=== PATIENT | male | born 1980 | race Two or more races ===

== ENCOUNTER → 2024-04-08 | Outpatient (CLI) | payer MEDICAID, SELFPAY ==
--- NOTE | 2024-04-08 10:30 | XR_ITS ---
Examination: MRI lumbar spine without contrast Date and time of exam: April 08, 2024 1121 hours INDICATIONS: Low back pain radiating down the right leg to the foot 4 months Technique: Multiple MRI axial and sagittal sections lumbar spine. Sagittal T2-weighted images, TR 3500, TE 118 T1 weighted transverse sections, TR 688 T8.5, T2-weighted sagittal sections T1 weighted sagittal sections TR 621, TE 30 T2 axial sections, TR 4, 190, TE 84. Findings: Adequate alignment lumbar vertebral bodies on the lateral view No lumbar fracture Disc desiccation lower 2 lumbar levels Moderate disc narrowing L5-S1 L5-S1 12 mm extruded right paracentral subarticular disc displacing the right S1 nerve root to a lesser extent the left S1 nerve root and producing mild right L5 ganglionic compression L4-L5 2 mm central lumbar disc bulge More cephalad levels unremarkable IMPRESSION: L5-S1 large, 12 mm, extruded right paracentral subarticular disc as above
== END | disposition home or self-care (01) ==
PROVIDERS: Referring Provider Family Medicine; Visit Provider Family Medicine
DX: M51.27 Other intervertebral disc displacement, lumbosacral region (principal)
CPT/HCPCS: 72148

== ENCOUNTER 2024-05-14 15:26 | Outpatient (RCR) | payer MEDICAID, SELFPAY ==
--- NOTE | 2024-05-14 15:53 | PTNOTE_ITS ---
PT OP Initial Eval Patient Information Outpatient Physical Therapy Treatment Date: 05/14/24 Visit Reasons: Right side of lower back pain Medical Diagnosis: M54.31 Treatment Dx #1: Back Pain Start of Care: 05/14/24 Date of Onset: 1 year ago Smoking Status Smoking Status: Never smoker Initial Assessment Subjective: Pt is a 44 y/o male reports of chronic back pain (12/12) with weakness and numbness in the right leg. Pt's MRI showed large 12 mm disc bulge at the L5-S1 disc. Pt has limitation with sitting, standing, chores, self care, cooking, cleaning, work duties, and performing ADLs. Objective: L/S AROM: all motions are 50% towards end range with pain Hip PROM: all motions are WFL except IR Hip MMTs: grossly 3/5 Special Test (+) slump (+) SLR Assessment: Pt demonstrate back pain with mobility deficits consistent with MRI finding of large disc bulge. Due to severity of disc protrustion Pt's prognosis with physical therapy is poor. Recommend patient to follow up with provider for further consultation and possible referral to neuro consult. Pt was evaluted and d/c from care; thank you for your referrals. Short Term and Shelter Goals 1) Eval and D/C 2) Follow up with provider Treatment Plan Eval and D/C Frequency and Duration: 1x Certification Dates: 05/14/24 to 08/12/24 Procedure Charges OP PT Eval Mod Complex 30 minutes: Yes
== END 2024-06-04 23:59 | disposition home or self-care (01) ==
LOC: CPTX 15:26
PROVIDERS: PCP Family Medicine; Referring Provider Family Medicine; Visit Provider Family Medicine
DX: M54.31 Sciatica, right side (principal); G89.29 Other chronic pain
CPT/HCPCS: 97162

== ENCOUNTER 2024-11-23 13:44 | Outpatient (RCR) | payer MEDICAID, SELFPAY ==
--- NOTE | 2024-11-23 17:31 | PTNOTE_ITS ---
PT OP Initial Eval Patient Information Outpatient Physical Therapy Treatment Date: 11/23/24 Visit Reasons: Right lower limb/including hip Medical Diagnosis: D21.21 Start of Care: 11/23/24 Date of Onset: 1 yr ago Smoking Status Smoking Status: Never smoker Initial Assessment Subjective: Pt is 44 yr old male who c/o R ankle and foot pain x1 yr. Increased pain with stepping and walking and he points to the ball of the foot as site of pain and tenderness. PMH lumbar surgery Imaging: none Pt goal: not sure Objective: R ankle AROM: Strength: DF full 4+/5 PF: full 4+/5 Squat: full without pain TTP: min to none of plantar aspect met heads and plantar fascia and soft tissue protrusion inferior to lateral malleolus Assessment: Pt presents with soft tissue protrusion that is moderately TTP. He will not likely benefit from skilled therapy and has poor rehab potential to meet goals due to not knowing what the protrusion is. He would benefit from further diagnostic imaging such as MRI of R ankle and foot. Short Term and Senior Living Goals Eval and D/C Treatment Plan Eval and D/C Certification Dates: 11/23/24 to 12/23/21 Procedure Charges OP PT Eval Mod Complex 30 minutes: Yes
== END 2024-12-02 23:59 | disposition home or self-care (01) ==
LOC: CPTX 13:44
PROVIDERS: PCP Podiatrist Foot & Ankle Surgery; Referring Provider Podiatrist Foot & Ankle Surgery; Visit Provider Podiatrist Foot & Ankle Surgery
DX: M25.571 Pain in right ankle and joints of right foot (principal); D21.21 Benign neoplasm of connective and other soft tissue of right lower limb, including hip
CPT/HCPCS: 97162